=== PATIENT | male | born 1945 | race African-American/Black ===

== ENCOUNTER 2023-06-17 09:02 | Outpatient (AMB) | payer MEDICARE, MEDICAID, SELFPAY ==
--- NOTE | 2023-06-17 10:17 | MHC.OFFWIV ---
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 after 15 years To be close to his family Patient have a history of asthma and was on Symbicort until his insurance declined to cover it I have sent different maintenance inhaler patient is to check with his pharmacy He is requesting albuterol refill which I have sent as well Currently patient is stable however he is using albuterol every night He has appointment with a new PCP coming up next month. Review system: Patient deny any shortness a breath any chest pain, no coughing no headache no dizziness no nausea vomiting diarrhea no abdominal pain PFSH Social History Patient Tobacco Use Status: Never used Tobacco Review of Systems Const All systems reviewed & are unremarkable except as noted in HPI and below Physical Exam Vital Signs: Last Vital Signs Temp 97.4 F 06/17/23 10:20 Pulse 77 06/17/23 10:20 BP 140/80 H 06/17/23 10:20 Pulse Ox 98 06/17/23 10:20 Oxygen Delivery Method Room Air 06/17/23 10:20 BMI result Body Mass Index 24.8 Const General: no acute distress Orientation/consciousness: patient oriented x3 Eyes General: appearance normal, both eyes and all related structures Resp Effort & Inspection: normal respiratory effort and able to speak in complete sentences Auscultation: clear to auscultation bilaterally Cardio Other: S1 S2 Neuro General: patient oriented x3 Psych Mental Status: mental status grossly normal Assessment & Plan Assessment & Plan (1) Asthma, moderate persistent: Code(s): J45.40 - Moderate persistent asthma, uncomplicated Qualifiers: Asthma complication type: uncomplicated Qualified Code(s): J45.40 - Moderate persistent asthma, uncomplicated Plan Patient is 78-year-old gentleman with a history of asthma Just moved in this area from [facility] after 15 years To be close to his family Patient have a history of asthma and was on Symbicort until his insurance declined to cover it I have sent different maintenance inhaler patient is to check with his pharmacy He is requesting albuterol refill which I have sent as well Currently patient is stable however he is using albuterol every night He has appointment with a new PCP coming up next month. Review system: Patient deny any shortness a breath any chest pain, no coughing no headache no dizziness no nausea vomiting diarrhea no abdominal pain Medications: New fluticasone propion-salmeterol 232-14 mcg/actuation (AirDuo RespiClick) 1 inh inhalation BID 1 ea 0RF albuterol sulfate 90 mcg/actuation (Ventolin HFA) 1 inh inhalation QID 30 days PRN 6.7 grams 0RF shortness of breath or wheezing Coding Level of Care Code New Pt Level 3 (76228) Diagnoses Moderate persistent asthma without complication J45.40 Asthma complication type: uncomplicated
[2023-06-17 10:20] VITALS: BP 140/80; PULSE 77; TEMP 36.3; O2SAT 98; BMI 24.8
== END 2023-06-17 10:40 | disposition home or self-care (01) ==
PROVIDERS: Visit Provider Internal Medicine
DX: J45.40 Moderate persistent asthma, uncomplicated (principal)
CPT/HCPCS: 99203

== ENCOUNTER 2023-08-22 11:22 | Outpatient (AMB) | payer MEDICARE, SELFPAY ==
--- NOTE | 2023-08-22 11:33 | A.OFFVIS_ITS ---
Intake Visit Reasons: Elevated PSA Intake Note: New patient is present for Elevatd PSA/BPH Without LUTS Urology Med: Alfuzosin Anitbiotic Allergies: None Blood Thinner: None Allergies No Known Allergies Allergy (Verified 08/22/23 11:38) HPI Comments Details: Cliff is a pleasant male. He is a patient with scope. He seen for the following urologic conditions - lower urinary tract symptoms - elevated PSA Elevated PSA Recently moved back to [facility] from [facility] Had been followed for elevated PSA PSA 06/14 6.6 Prior biopsy performed 2020 Recent MRI - prostate size 90 g, 8 mm prostatic apex PI-RADS 4 lesion Has clinically insignificant prostate lesion. Under 10 mm. Large prostate with PSA density below 10% Recommend trial of finasteride PFSH Medical History Colonic polyp BPH without obstruction/lower urinary tract symptoms HTN (hypertension) History of ETOH abuse Hx of major depression LV hypertrophy, hypertensive Surgical History History of prostate biopsy Social History Patient Tobacco Use Status: Never used Tobacco Review of Systems Const Denies chills and Denies fever(s) Card Reports no additional complaints and Denies syncope Resp Denies cough GI Denies abdominal pain and Denies heartburn Reports as per HPI and Denies change in libido Neuro Denies syncope Psych Denies change in libido Endo Denies change in libido Physical Exam Const General: cooperative, healthy appearing, comfortable and no acute distress Orientation/consciousness: patient oriented x3 HEENT Face and sinus: Yes normal facial exam Mouth: moist mucous membranes Neck Neck: Yes normal visual inspection, Yes full ROM and Yes trachea midline Chest Chest palpation & inspection: normal inspection of the chest Resp Effort & Inspection: normal respiratory effort, able to speak in complete sentences and no respiratory distress GI Inspection: Yes normal to inspection Rectal Exam - Male: Yes normal sphincter tone and Yes prostate normal Male General Exam: Yes normal external exam Penis: normal penis and circumcised Meatus: meatus normal Scrotum: scrotum normal Testes: Testes normal Back/Spine/Pelvis Cervical Spine: normal cervical lordosis Thoracic/Lumbar Spine: thoracic and lumbar spine normal to inspection Skin General skin exam: no rashes or lesions noted Neuro General: patient oriented x3, gait normal, tone normal and moves all extremities Extrem General: Yes normal to inspection and Yes capillary refill normal Assessment & Plan Assessment & Plan (1) Elevated PSA: Code(s): R97.20 - Elevated prostate specific antigen [PSA] Category: Medical Plan Six-month follow-up PSA Orders: Orders PSA,Total (Free>4and<10) 6 Months R97.20 - Elevated prostate specific antigen [PSA] Medications: New finasteride 5 mg PO DAILY 90 days 90 tabs 1RF N13.8 - Other obstructive and reflux uropathy, N40.1 - Benign prostatic hyperplasia with lower urinary tract symptoms, R33.9 - Retention of urine, unspecified, R97.20 - Elevated prostate specific antigen [PSA] Patient Instructions: Imaging studies, laboratory and physical exam results were discussed and reviewed in detail. No major barriers to patient understanding were identified. An opportunity to ask questions regarding the treatment plan was provided. All questions were answered. The patient expressed understanding and agreement with the above treatment plan. The patient is aware they should contact our office by phone for worsening of their current condition or the appearance of new urologic symptoms. Compliance is encouraged with any medications and followup testing that is ordered. It is a privilege to participate in the urologic care of your patient. If you have any questions or concerns regarding treatment for the above conditions, or other urologic issues, please do not hesitate to contact me. The office telephone contact is [phone]. This note is constructed using voice recognition software. While every effort has been made to ensure accuracy particleboard factory worker errors may have been included. Yours sincerely, Dr Stephon Miller MD, [facility] - Urology Providers of Expert, Compassionate Care for the Genitourinary System Coding Level of Care Code New Pt Level 4 (27584) Diagnoses Elevated PSA R97.20
== END 2023-08-22 12:05 | disposition home or self-care (01) ==
PROVIDERS: PCP Registered Nurse; Visit Provider Urology
DX: R97.20 Elevated prostate specific antigen [PSA] (principal)
CPT/HCPCS: 99204

== ENCOUNTER → 2023-08-22 11:22 | Outpatient (BNVA) | payer MEDICARE, SELFPAY | PROVIDERS: PCP Registered Nurse; Visit Provider Urology | DX: R97.20 Elevated prostate specific antigen [PSA] (principal); N40.1 Benign prostatic hyperplasia with lower urinary tract symptoms; N13.8 Other obstructive and reflux uropathy; R33.8 Other retention of urine | CPT/HCPCS: 99202 ==

== ENCOUNTER 2024-03-04 11:31 | Outpatient (AMB) | payer MEDICARE, SELFPAY ==
--- NOTE | 2024-03-04 11:48 | A.OFFVIS_ITS ---
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 He is a patient with scope. He seen for the following urologic conditions - lower urinary tract symptoms - elevated PSA Telemedicine Evaluation 15 min Consultation [employer] Teresa Video PSA fell to 4.1 on finasteride Would continue Six-month check PSA Elevated PSA Recently moved back to [facility] from [facility] Had been followed for elevated PSA PSA 06/14 6.6, 02/11 4.1 Prior biopsy performed 2020 Recent MRI - prostate size 90 g, 8 mm prostatic apex PI-RADS 4 lesion Has clinically insignificant prostate lesion. Under 10 mm. Large prostate with PSA density below 10% Continue finasteride [facility] Medical History (Updated 03/04/24 @ 11:54 by Stephon Miller MD) Colonic polyp BPH without obstruction/lower urinary tract symptoms HTN (hypertension) History of ETOH abuse Hx of major depression LV hypertrophy, hypertensive Surgical History History of prostate biopsy Social History Patient Tobacco Use Status: Never used Tobacco Review of Systems Const All systems reviewed & are unremarkable except as noted in HPI and below Reports no additional complaints Resp Reports no additional complaints GI Reports no additional complaints Reports as per HPI Musc Reports no additional complaints Physical Exam Telemedicine evaluation Appropriate responses Regular breathing rate and rhythm HEENT Head: Yes normal to inspection Ears: hearing grossly normal bilaterally Eyes General: appearance normal, both eyes and all related structures Neck Neck: Yes normal visual inspection Chest Chest palpation & inspection: normal inspection of the chest Resp Effort & Inspection: normal respiratory effort and able to speak in complete sentences Telehealth Telehealth Telehealth Platform: [employer] Location of provider rendering services: practice address Location of patient: address on file Patient Identification confirmed using: Name, : Yes Telehealth method: video Patient verbally consented to treatment: Yes Patient verbally consented to billing insurance company: Yes Patient informed of any privacy concerns related to visit: Yes Minutes spent on Phone/Video with Pt.: 15 Assessment & Plan Assessment & Plan (1) Elevated PSA: Code(s): R97.20 - Elevated prostate specific antigen [PSA] Category: Medical (2) BPH without obstruction/lower urinary tract symptoms: Code(s): N40.0 - Benign prostatic hyperplasia without lower urinary tract symptoms Category: Medical Plan Continue finasteride PSA checked six-month Orders: Orders Prostate Specific Antigen 6 Months R97.20 - Elevated prostate specific antigen [PSA] Prostate Specific Antigen 02/26/24 R97.20 - Elevated prostate specific antigen [PSA] Medications: Refilled finasteride 5 mg PO DAILY 90 days 90 tabs 1RF N13.8 - Other obstructive and reflux uropathy, N40.1 - Benign prostatic hyperplasia with lower urinary tract symptoms, R33.9 - Retention of urine, unspecified, R97.20 - Elevated prostate specific antigen [PSA] Patient Instructions: Imaging studies, laboratory and physical exam results were discussed and reviewed in detail. No major barriers to patient understanding were identified. An opportunity to ask questions regarding the treatment plan was provided. All questions were answered. The patient expressed understanding and agreement with the above treatment plan. The patient is aware they should contact our office by phone for worsening of their current condition or the appearance of new urologic symptoms. Compliance is encouraged with any medications and followup testing that is ordered. It is a privilege to participate in the urologic care of your patient. If you have any questions or concerns regarding treatment for the above conditions, or other urologic issues, please do not hesitate to contact me. The office telephone contact is [phone]. This note is constructed using voice recognition software. While every effort has been made to ensure accuracy oyster sorter errors may have been included. Yours sincerely, Dr Stephon Miller MD, [facility] - Urology Providers of Expert, Compassionate Care for the Genitourinary System Coding Level of Care Code Tele Est Pt Level 3 (08744) Diagnoses Elevated PSA R97.20 BPH without obstruction/lower urinary tract symptoms N40.0
== END 2024-03-04 12:06 | disposition home or self-care (01) ==
LOC: HO.HUSH 11:31
PROVIDERS: PCP Registered Nurse; Visit Provider Urology
DX: R97.20 Elevated prostate specific antigen [PSA] (principal); N40.0 Benign prostatic hyperplasia without lower urinary tract symptoms
CPT/HCPCS: 99213

== ENCOUNTER 2024-11-23 10:03 | Outpatient (AMB) | payer MEDICARE, MEDICAID, SELFPAY ==
--- NOTE | 2024-11-23 10:03 | MHC.OFFVIS ---
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 He is a patient of Dr Monae. He seen for the following urologic conditions - lower urinary tract symptoms - elevated PSA Six-month follow-up PSA Has been on finasteride Bounce to 8.2 Prior MRI large prostate but clinically insignificant lesion Had been off finasteride Represcribed Six-month check PSA Elevated PSA Recently moved back to [facility] from [facility] Had been followed for elevated PSA PSA 06/14 6.6, 02/11 4.1 Prior biopsy performed 2019 Recent MRI - 2022 - prostate size 90 g, 8 mm prostatic apex PI-RADS 4 lesion Has clinically insignificant prostate lesion. Under 10 mm. Large prostate with PSA density below 10% Continue finasteride [facility] Medical History (Updated 03/04/24 @ 11:54 by Stephon Miller MD) Colonic polyp BPH without obstruction/lower urinary tract symptoms HTN (hypertension) History of ETOH abuse Hx of major depression LV hypertrophy, hypertensive Surgical History History of prostate biopsy Social History Patient Tobacco Use Status: Never used Tobacco Review of Systems Const Denies chills and Denies fever(s) Card Reports no additional complaints and Denies syncope Resp Denies cough GI Denies abdominal pain and Denies heartburn Reports as per HPI and Denies change in libido Neuro Denies syncope Psych Denies change in libido Endo Denies change in libido Physical Exam Const General: cooperative, healthy appearing, comfortable and no acute distress Orientation/consciousness: patient oriented x3 HEENT Face and sinus: Yes normal facial exam Mouth: moist mucous membranes Neck Neck: Yes normal visual inspection, Yes full ROM and Yes trachea midline Chest Chest palpation & inspection: normal inspection of the chest Resp Effort & Inspection: normal respiratory effort, able to speak in complete sentences and no respiratory distress GI Inspection: Yes normal to inspection Back/Spine/Pelvis Cervical Spine: normal cervical lordosis Thoracic/Lumbar Spine: thoracic and lumbar spine normal to inspection Skin General skin exam: no rashes or lesions noted Neuro General: patient oriented x3, gait normal, tone normal and moves all extremities Extrem General: Yes normal to inspection and Yes capillary refill normal Assessment & Plan Assessment & Plan (1) BPH without obstruction/lower urinary tract symptoms: Code(s): N40.0 - Benign prostatic hyperplasia without lower urinary tract symptoms Category: Medical (2) Elevated PSA: Code(s): R97.20 - Elevated prostate specific antigen [PSA] Category: Medical Plan Six-month follow-up repeat PSA on finasteride Patient Instructions: This note is constructed using voice recognition software. While every effort has been made to ensure accuracy assembly manager errors may have been included. Imaging studies, laboratory and physical exam results were discussed and reviewed in detail. No major barriers to patient understanding were identified. An opportunity to ask questions regarding the treatment plan was provided. All questions were answered. The patient expressed understanding and agreement with the above treatment plan. The patient is aware they should contact our office by phone for worsening of their current condition or the appearance of new urologic symptoms. Compliance is encouraged with any medications and followup testing that is ordered. It is a privilege to participate in the urologic care of your patient. If you have any questions or concerns regarding treatment for the above conditions, or other urologic issues, please do not hesitate to contact me. The office telephone contact is [phone]. Sincerely, Dr Stephon Miller MD, [place] [facility] - Urology Compassionate Specialist Care for the Genitourinary System Coding Level of Care Code Est Pt Level 4 (24632) Diagnoses BPH without obstruction/lower urinary tract symptoms N40.0 Elevated PSA R97.20
--- OUTSIDE RECORDS SUMMARY | 2024-11-23 10:37 | XMS_ITS | Clinical Summary ---
Author Organization [facility] Address [address] [place] [address] Phone Care Team Providers Care Manager Privacy Name Role Phone Salbador Monae CNP Primary Care Provider [phone] Allergies Active Allergy Reactions Criticality Noted Date Comments Pollen Extracts 09/06/2020 Tree Nut 09/06/2020 Medications alfuzosin (UROXATRAL) 10 mg 24 hr tablet Take 1 tablet by mouth every morning. 4 Active losartan-hydroC HLOROthiazide (HYZAAR) 50-12.5 mg per tablet Take 1 tablet by mouth 2 (two) times a day. 90 tablet 4 Active ADVAIR HFA 230-21 mcg/actuation inhaler Inhale 2 puffs into the lungs 2 (two) times a day. 12 g 2 5 Active amLODIPine (NORVASC) 10 MG tablet Take 1 tablet (10 mg total) by mouth every morning. 5 Active fluticasone propionate (FLONASE) 50 mcg/actuation nasal sprayIndication s:Chronic seasonal allergic rhinitis due to pollen 1 spray by Nasal route daily. 16 g 2 5 Active montelukast (SINGULAIR) 10 mg tablet TAKE 1 TABLET(10 MG) BY MOUTH DAILY 90 tablet 5 Active albuterol 90 mcg/actuation inhaler INHALE 2 PUFFS INTO THE LUNGS EVERY 4 HOURS NEEDED 8.5 g 5 Active montelukast (SINGULAIR) 10 mg tablet TAKE 1 TABLET(10 MG) BY MOUTH DAILY 90 tablet 5 10/26/19 25 Discontinued albuterol 90 mcg/actuation inhaler INHALE 2 PUFFS INTO THE LUNGS EVERY 4 HOURS NEEDED 18 g 1 5 11/23/19 25 Discontinued Active Problems Problem Noted Date Diagnosed Date Tingling of left upper extremity 09/29/2024 Assessment & Plan (09/29/2024 11:17 AM EDT): Not overly bothersome. Primarily in hand, occurs intermittently. No associated symptoms. May be neck related, encourage stretching/moist heat. Follow-up if no improvement and/or worsening symptoms. Can consider PT/imaging as needed Medicare annual wellness visit, subsequent 10/23 Assessment & Plan (10/24/2023 5:21 PM EDT): HRA form reviewed, all questions answered. Due for optho/dentist, patient will work on arrange. Believes immunizations utd and will work on getting copy from [facility] in [facility]. Fasting labs ordered today. No concerns with skin, does not see dermatology. Does not have HCP- form provided for patient today. Plan for HTN follow-up in six months, aware to follow-up sooner if needed Chronic seasonal allergic rhinitis due to pollen 07/10/2023 Assessment & Plan (09/29/2024 11:16 AM EDT): RX refill sent for Flonase Assessment & Plan (07/17/2023 3:13 PM EDT): Uses Flonase with management BPH without obstruction/lower urinary tract symp toms 07/10/2023 Overview (07/10/2023): Saw urology Assessment & Plan (09/29/2024 11:16 AM EDT): Following/managed through urology- Dr. Miller Assessment & Plan (10/24/2023 5:17 PM EDT): Had visit with urology and Finasteride was added to regimen. Not 100% sure if improvement but has been approximately one 1-2 months. Has follow-up visit with urology 02/2024 Assessment & Plan (07/17/2023 3:15 PM EDT): Following with urology annually in [facility] and interested in establishing locally. Referral entered to Dr. Miller in [place]. Patient will reach out to their office. PSA labs ordered to be done 09/2023. Continue medications as prescribed Elevated PSA 07/10/2023 Overview (07/10/2023): Saw urology Assessment & Plan (07/17/2023 3:15 PM EDT): *see plan per BPH History of colonic polyps 07/10/2023 Overview (07/10/2023): Referred to GI 10/21/22 ? Did he have next f/u colonoscopy Assessment & Plan (10/24/2023 5:21 PM EDT): Reports no further screening with colonoscopy Assessment & Plan (07/17/2023 3:15 PM EDT): Reports having a colonoscopy recently and then advised no further screening Mild recurrent major depression 07/10/2023 Assessment & Plan (10/24/2023 5:18 PM EDT): Mood feels stable at this time, doing well without medication and does not feel needed at this time Assessment & Plan (07/17/2023 3:16 PM EDT): Had been on Fluoxetine, weaned self off as didn't feel needed. Mood has been stable and overall feels well without medication Primary hypertension 07/09/2023 Assessment & Plan (09/29/2024 11:16 AM EDT): BP at goal, continue medications as prescribed. Labs previously ordered but not yet completed, ordered again today and will follow-up with results. Encourage DASH diet/regular exercise Assessment & Plan (10/24/2023 5:12 PM EDT): BP at goal, continue medications as prescribed. Referral entered to cardiology 08/2023 but patient never heard regarding appointment. Phone # provided for [facility] and encourage for patient to call their office to arrange. Labs ordered today, last done 09/2022. Encourage DASH diet/regular exercise Assessment & Plan (07/17/2023 3:13 PM EDT): BP at goal today, medication list/reviewed. Labs done 09/2022. Was following with cardiology in [facility] and prefers to follow here. Referral entered and phone # provided for patient. No acute concerns at this time Moderate persistent asthma without complication 07/09/2023 Assessment & Plan (10/24/2023 5:24 PM EDT): Has been well managed, inhaler prescription verified and taking Advair HFA 230- 21 two puffs BID. Dosage/prescription confirmed with pharmacist. Believes utd with PNA vaccine, will obtain copy of records from [facility]. Assessment & Plan (07/17/2023 3:14 PM EDT): Has been without Symbicort for past 2-3 months due to insurance no longer covering. Can tell audible wheezing, no signs of respiratory distress. Advair inhaler rx was sent by but patient has yet to start it, encourage to start and call with update in 1-2 weeks. If not improvement may need to increase/change medication. Also takes Singulair and has albuterol inhaler to use as needed. Aware to follow-up sooner for any new/worsening symptoms Encounters Date Type Department Care Team Description 11/20/2024 Refill [facility] [address] [place] [address] Salbador Monae CNP Medication Refill 11/19/2024 8:48 AM EDT - 11/19/2024 11:59 PM EDT Hospital Encounter [facility] [address] [place] [address] Stephon Miller MD Discharge Disposition: Home or Self Care 11/17/2024 Telephone [facility] [address] [address] Salbador Monae CNP 11/08/2024 9:38 AM EDT - 11/08/2024 11:59 PM EDT Hospital Encounter [facility] [address] [place] [address] Salbador Monae CNP Discharge Disposition: Home or Self Care 11/08/2024 Transcribe Orders [facility] [address] [place] [address] Salbador Monae CNP Iron deficiency anemia, unspecified iron deficiency anemia type (Primary Dx) 10/29/[address] [address] Salbador Monae CNP Results 10/25/2024 8:31 AM EDT - 10/25/2024 11:59 PM EDT Hospital Encounter [facility] [address] [place] [address] Salbador Monae CNP Discharge Disposition: Home or Self Care 10/25/[address] [address] Salbador Monae CNP Medication Refill (montelukast sodium ) 09/29/2024 11:00 AM EDT Office Visit [address] [address] Salbador Monae CNP Primary hypertension (Primary Dx); BPH without obstruction/lower urinary tract symptoms; Chronic seasonal allergic rhinitis due to pollen; Tingling of left upper extremity 09/29/[address] [address] Salbador Monae CNP 09/16/[address] [address] Salbador Monae CNP Appointment (FUV r/s) from Last 3 Months Immunizations Immunization Administration Dates Next Due COVID-19 (Pre-02/10) Moderna Vaccine, mRNA, PF 1 05/09/2020 Td (adult),2 Lf Tetanus Toxoid, PF, Adsorbed Social History Tobacco Use Types Packs/Day Years Used Date Smoking Tobacco: Former Cigarettes 0.3 25 1 965 - 1989 Smokeless Tobacco: Never Alcohol Use Standard Drinks/Week Comments Not Currently 0 (1 standard drink = 0.6 oz pur e alcohol) Education Answer Date Recorded Are you interested in more education? Not on chai e 08/15/2022 Are you concerned about learning? Not on file 08/15/2022 No 08/15/2022 No 08/15/2022 Digital Access Answer Date Recorded No 09/16/2022 No 09/16/2022 Reliable internet access at home? Not on file 09/16/2022 Device with a working camera? Not on file Intimate Partner Violence Answer Date R ecorded Denied Basic Needs Not on file 10/24/2023 In the past 12 months have y ou been in a relationship with a person who hurts, threatens, or tries to control you? No 10/24/2023 Worried food would run out Not on file 10/23 In the past 12 months have y ou been in a relationship with a person who hurts, threatens, or tries to control you? No 10/24/2023 Sex and Gender Information Value Date Recorded Sex Assigned at Not on file Legal Sex Male 7:47 PM EST Gender Identity Not on file Sexual Orientation Not on file Last Filed Vital Signs Vital Sign Reading Time Taken Comments Blood Pressure 122/68 09/29/2024 10:42 AM EDT Pulse 76 09/29/2024 10:42 AM EDT Temperature 36.6 C (97.8 F) 09/29/2024 10:42 AM EDT Respiratory Rate 20 10/24/2023 1:00 PM EDT Oxygen Saturation 97% 09/29/2024 10:42 AM EDT Inhaled Oxygen Concentration - - Weight 77.6 kg (171 lb) 09/29/2024 10:42 AM EDT Height 167.6 cm (5' 6 ) 10/24/2023 1:00 PM EDT Body Mass Index 27.6 10/24/2023 1:00 PM EDT Plan of Treatment Upcoming Encounters Date Type Department Care Team (Late st Contact Info) Description 01/17/2025 10:00 AM EDT Telemedicine [facility] [address] [place] [address] Vanda Monae PA-C [address] [place] [address] [email or web address] 04/04/2025 11:00 AM EST Office Visit [facility] [address] [place] [address] Salbador Monae, DG [address] [place] [address] [email or web address] Health Maintenance Due Date Last Done Comments SMOKING Hx and SMOKELESS TOB ACCO SCREENING 1958 HEPATITIS C SCREENING 01/17/1964 PNEUMOCOCCAL VACCINES (50+ y ears) (1 of 2 - PCV) 1965 ZOSTER VACCINES (1 of 2) 01/17/1996 Adult Td,Tdap Booster 02/18/2016 02/17/2006 RSV VACCINE (1 - 1-dose 75+ series) 2021 COVID-19 VACCINE (2 - 2023-2 5 season) 2023 03/09/2021 DEPRESSION SCREENING 10/23/2024 10/24/2023 BLOOD PRESSURE 03/31/2025 09/29/2024 CREATININE LEVEL 10/25/2025 10/25/2024 POTASSIUM LEVEL 10/25/2025 10/25/2024 LIPID PANEL 10/25/2029 10/25/2024 HEPATITIS A VACCINES Aged Out No long er eligible based on patient's age to complete this topic HIB VACCINES Aged Out No longer eligi ble based on patient's age to complete this topic MENINGOCOCCAL VACCINES (ACWY) Aged Out No longer eligible based on patient's age to complete this topic MENINGOCOCCAL VACCINES (B) Aged Out N o longer eligible based on patient's age to complete this topic Medical Devices Not on file Procedures Procedure Name Priority Date/Time Associated Diagnosis Comments PSA (SCREENING) Routine 11/19/2024 9:19 AM EDT Elevated prostate specific antigen (PSA) FOLATE Routine 11/08/2024 12:13 PM EDT Iron deficiency anemia, unspecified iron deficiency anemia type IRON AND IRON BINDING CAPACITY Routine 11/08/2024 9:59 AM EDT Iron deficiency anemia, unspecified iron deficiency anemia type FERRITIN Routine 11/08/2024 9:59 AM EDT Iron deficiency anemia, unspecified iron deficiency anemia type CBC AND DIFFERENTIAL Routine 11/08/2024 9:59 AM EDT Iron deficiency anemia, unspecified iron deficiency anemia type CBC Routine 10/25/2024 9:22 AM EDT Primary hypertension COMPREHENSIVE METABOLIC PANEL Routine 10/25/2024 9:22 AM EDT Primary hypertension LIPID PANEL Routine 10/25/2024 9:22 AM EDT Primary hypertension from Last 3 Months Results * (ABNORMAL) PSA (screening) (11/19/2024 9:19 AM EDT) PSA 8.24(H) 0 - 4.00 ng/mL [facility] Comment: Test Methodology Masood [id number] Patient results determined by assays using different manufacturers or methods may not be comparable. Blood 11/19/2024 9:19 AM EDT 11/19/2024 9:23 AM EDT us Stephon Miller MD LAB BLOOD ORDERABLES Final Result [facility] [address] [place] [address] * Folate (11/08/2024 12:13 PM EDT) FOLIC ACID 8.1 4.2 - 19.9 ng/mL [facility] Blood 11/08/2024 12:1 3 PM EDT 11/08/2024 12:17 PM EDT Salbador Monae [facility] LAB BLOOD ORDERABLES Final Result Performing Organization Address City/[facility]/ZIP Co de Phone Number [address] [address] * Iron and iron binding capacity (11/08/2024 9:59 AM EDT) IRON 86 45 - 160 ug/dL [facility] IRON BINDING CAPACITY 239 228 - 428 ug/dL [facility] TRANSFERRIN SATURAT. 36 20 - 55 % [facility] Blood 11/08/2024 9:59 AM EDT 11/08/2024 11:20 AM EDT Salbador Monae [facility] LAB BLOOD ORDERABLES Final Result Performing Organization Address [facility] Co de Phone Number [address] [address] * (ABNORMAL) CBC and differential (11/08/2024 9:59 AM EDT) WBC 7.80 4.00 - 11.00 K/uL [facility] RBC 4.70 4.50 - 5.90 M/uL [facility] HGB 11.7(L) 13.5 - 17.5 g/dL [facility] HCT 36.2(L) 41.0 - 53.0 % [facility] PLT 274 150 - 450 K/uL [facility] MCV 77.0(L) 80.0 - 100.0 fL [facility] MCH 24.9(L) 27.0 - 31.0 pg [facility] MCHC 32.3 32.0 - 36.0 g/dL [facility] RDW 12.9 11.5 - 14.5 % [facility] MPV 11.6 8.4 - 12.0 fL [facility] NRBC 0.00 0.00 /100 WBCs [facility] ABSOLUTE NRBC 0.00 0.00 K/uL [facility] DIFF METHOD Auto [facility] NEUTS 48.4 48.0 - 76.0 % [facility] LYMPHS 25.0 18.0 - 41.0 % [facility] MONOS 5.3 4.0 - 11.0 % [facility] EOS 19.9(H) 0.0 - 5.0 % [facility] BASOS 1.0 0.0 - 1.5 % [facility] Granulocytes, immature (%) 0.4 0.0 - 0.9 % [facility] ABSOLUTE NEUTS 3.78 1.92 - 7.60 K/uL [facility] ABSOLUTE LYMPHS 1.95 0.72 - 4.10 K/uL [facility] ABSOLUTE MONOS 0.41 0.16 - 1.10 K/uL [facility] ABSOLUTE EOS 1.55(H) 0.00 - 0.50 K/uL [facility] ABSOLUTE BASOS 0.08 0.00 - 0.15 K/uL [facility] Granulocytes, immature 0.03 0.00 - 0.09 K/uL [facility] Blood 11/08/2024 9:59 AM EDT 11/08/2024 11:20 AM EDT us Salbador Monae CNP LAB BLOOD ORDERABLES Final Result [address] [address] * Ferritin (11/08/2024 9:59 AM EDT) FERRITIN 294 30 - 400 ug/L [facility] Blood 11/08/2024 9:59 AM EDT 11/08/2024 11:20 AM EDT Salbador Monae [employer] LAB BLOOD ORDERABLES Final Result [address] [address] * (ABNORMAL) Comprehensive metabolic panel (10/25/2024 9:22 AM EDT) SODIUM 140 133 - 146 mmol/L [facility] POTASSIUM 4.0 3.3 - 5.1 mmol/L [facility] CHLORIDE 105 96 - 108 mmol/L [facility] CO2 26 21 - 35 mmol/L [facility] BUN 14 6 - 19 mg/dL [facility] CREATININE 1.40 0.5 - 1.5 mg/dL [facility] GLUCOSE 94 70 - 99 mg/dL [facility] ALBUMIN 4.0 3.9 - 4.8 g/dL [facility] TOTAL PROTEIN 7.0 6.5 - 8.0 g/dL [facility] CALCIUM 9.7 8.4 - 10.3 mg/dL [facility] ALKALINE PHOSPHATASE 80 39 - 117 U/L [facility] TOTAL BILIRUBIN 0.5 0.0 - 1.2 mg/dL [facility] AST 20 0 - 37 U/L [facility] ALT 19 0 - 40 U/L [facility] GLOBULIN 3.0 1 - 4.8 g/dL [facility] EGFR 51(L) >59 mL/min/1.7 3m2 [facility] Comment:Estimated glomerular filtration rate calculated using the CKD-EPI refit equation. ANION GAP 13 10 - 20 mmol/L [facility] Blood 10/25/2024 9:2 2 AM EDT 10/25/2024 9:25 AM EDT us Salbador Monae [facility] LAB BLOOD ORDERABLES Final Result Performing Organization Address City/State/[facility] Co de Phone Number [address] [address] * (ABNORMAL) CBC (10/25/2024 9:22 AM EDT) WBC 7.46 4.00 - 11.00 K/uL [facility] RBC 4.53 4.50 - 5.90 M/uL [facility] HGB 11.5(L) 13.5 - 17.5 g/dL [facility] HCT 34.8(L) 41.0 - 53.0 % [facility] PLT 238 150 - 450 K/uL [facility] MCV 76.8(L) 80.0 - 100.0 fL [facility] MCH 25.4(L) 27.0 - 31.0 pg [facility] MCHC 33.0 32.0 - 36.0 g/dL [facility] RDW 12.8 11.5 - 14.5 % [facility] MPV 11.9 8.4 - 12.0 fL [facility] NRBC 0.00 0.00 /100 WBCs [facility] ABSOLUTE NRBC 0.00 0.00 K/uL [facility] Blood 10/25/2024 9:22 AM EDT 10/25/2024 9:25 AM EDT Salbador Monae CNP LAB BLOOD ORDERABLES Final Result Performing Organization Address City/[facility]/ZIP Co de Phone Number [address] [address] * (ABNORMAL) Lipid panel (10/25/2024 9:22 AM EDT) HDL 68 mg/dL [facility] Comment: Interpretation <40 mg/dL: Low HDL cholesterol (major risk factor for CHD) Greater than or equal to 60 mg/dL: High HDL cholesterol ( negative risk factor for CHD) HDL - cholesterol is affected by a number of factors, e.g. smoking, excerise, hormones, sex and age. CHOLESTEROL 158 0 - 240 mg/dL [facility] TRIGLYCERIDES 112 30 - 160 mg/dL [facility] LDL 68 50 - 129 mg/dL [facility] Comment: LDL levels in terms of risk for coronary heart disease: <100 mg/dL: Optimal 100-129 mg/dL: Near or above optimal 130-159 mg/dL: Borderline high 160-189 mg/dL: High >190 mg/dL: Very High CARDIAC RISK RATIO 2.3(L) 3.4 - 5.0 C [facility] Blood 10/25/2024 9:22 AM EDT 10/25/2024 9:25 AM EDT Salbador Monae CNP LAB BLOOD ORDERABLES Final Result [address] [place] [address] from Last [address] [place] [address] [facility] MEDICARE REPLACEMENT [facility] MEDICARE REPLACEMENT [facility]IC[facility]AC[facility] Member Subscriber Plan / Payer (Ef fective 2024-Present) Name:Cliff Metzger Relation to Subscriber:Self Name:Cliff Metzger Payer ID:[id number] (NAIC) Group ID:Not on file Type:Medicare Address: [place] [id number] [place] [address] [facility] MEDICARE REPLACEMENT Member Subscriber Plan / Payer (Ef fective 2024-) Name:Cliff Metzger Relation to Subscriber:Self Name:Cliff Metzger Payer ID:[id number] (NAIC) Group ID:Not on file Type:Medicare Address: [place] [id number] [facility] MEDIC[facility] REPLACEMENT [address] [place] [address] [address] [place] [address] [address] [place] [address] [place] [address] Care Teams Manager Privacy Relationship Specialty Start Date End Date Salbador Monae CNP [address] [place] [address] [place] [address] [email or web address] PCP - General Family Medicine 05/06/23 Additional Source Comments The information contained in this document represents components of the legal health record. It is not the complete legal health record.[facility]
--- OUTSIDE RECORDS SUMMARY | 2024-11-23 10:37 | XMS_ITS | Clinical Summary ---
Author Organization [facility] Address [address] [place], [place] [address] Care Team Providers Care Boilermaker Apprentice Name Role Phone JordanCarol caballero SONIA Primary Care Provider [phone] Social History Tobacco Use Types Packs/Day Years Used Date Smoking Tobacco: Never Assessed Sex and Gender Information Value Date Recorded Sex Assigned at Not on file Legal Sex Male 9:48 PM EDT Gender Identity Not on file Sexual Orientation Not on file Last Filed Vital Signs Vital Sign Reading Time Taken Comments Blood Pressure - - Pulse - - Temperature - - Respiratory Rate - - Oxygen Saturation - - Inhaled Oxygen Concentration - - Weight 72.1 kg (159 lb) 10/09/2018 10:07 AM EDT Height 168.3 cm (5' 6.25 ) 10/09/2018 10:07 AM E DT Body Mass Index 25.47 10/09/2018 10:07 AM EDT Plan of Treatment Health Maintenance Due Date Last Done Comments Hepatitis C Screening 1945 Pneumococcal Vaccine: 50+ (1 of 2 - PCV) 1965 Zoster Vaccines (1 of 2) 01/17/1996 Respiratory Syncytial Virus (RSV): 60+ years (1 - 1-dose 75+ series) 2021 DTaP,Tdap,and Td Vaccines (2 - Td or Tdap) 01/18/2023 01/18/2013 Influenza Vaccine (#1) 2024 HPV Vaccines Aged Out No longer eligi ble based on patient's age to complete this topic Meningococcal Vaccine Aged Out No lucinda emmett eligible based on patient's age to complete this topic Insurance KIRK MURPHY [id number] MEDICARE PART A AND B [facility] STANDARD Care Teams Boilermaker Apprentice Relationship Specialty Start Date End Date Carol Ortega NP [address] [place] [id number] PCP - General Family Medicine 10/11/21
--- OUTSIDE RECORDS SUMMARY | 2024-11-23 10:37 | XMS_ITS | Clinical Summary ---
Author Organization [facility] Address [address] [place] [address] Care Team Providers Care Licensed Final Expense Agents Name Role Phone Unavailable Primary Care Provider Unavailabl e Source Comments PLEASE NOTE, if this patient is a minor, it may be UNLAWFUL to discuss sensitive information that is contained in these records (such as FAMILY PLANNING, MENTAL HEALTH or SUBSTANCE ABUSE) with the minor patient's parent or other person without the patient's specific authorization.[facility] Allergies Active Allergy Reactions Criticality Noted Date Comments Nuts 09/06/2020 Pollen Extracts 09/06/2020 Medications fluticasone propionate (FLONASE) 50 mcg/actuation nasal spray Active losartan potassium (LOSARTAN ORAL) Acti ve montelukast (SINGULAIR) 10 mg tablet Take 10 mg by mouth nightly at bedtime Active amoxicillin (AMOXIL) 500 mg capsuleIndicati ons:Periapical abscess Take 1 Capsule by mouth 3 (three) times daily 21 Capsule 10/09/2022 Active ibuprofen 800 mg tabletIndicatio ns:Periapical abscess Take 1 Tablet by mouth 3 (three) times daily as needed for pain 21 Tablet 10/09/2022 Active Active Problems No known active problems Immunizations Immunization Administration Dates Next Due Moderna COVID-19 Vaccine, re d cap blue label, 12+ Primary Series 03/09/2021 Social History Tobacco Use Types Packs/Day Years Used Date Smoking Tobacco: Never Smokeless Tobacco: Never Social Connections Answer Date Recorded Connectedness 0 01/01/2024 Financial Resource Strain Answer Date R ecorded Financial Resource Strain 0 2020 Stress Answer Date Recorded Stress 0 09/06/2020 Physical Activity Answer Date Recorded Physical Activity 0 09/06/2020 Food Insecurity Answer Date Recorded Food 0 01/15/2024 Transportation Needs Answer Date Record ed Transportation 0 09/06/2020 Housing Stability Answer Date Recorded Housing 0 09/06/2020 Safety and Environment Answer Date Goran rded Safety 0 09/06/2020 Utilities Answer Date Recorded Utilities 0 09/06/2020 Employment Answer Date Recorded Stress 0 01/01/2024 Sex and Gender Information Value Date Recorded Sex Assigned at Male 09/06/2020 11:32 AM PDT Legal Sex Male 7:30 AM PDT Gender Identity Male 09/06/2020 11:32 AM PDT Sexual Orientation Straight 09/06/2020 11 :32 AM PDT Last Filed Vital Signs Vital Sign Reading Time Taken Comments Blood Pressure 154/75 10/09/2022 9:55 AM EDT Pulse 90 10/09/2022 9:55 AM EDT Temperature 37.1 C (98.7 F) 04/25/2021 12:35 PM EST Respiratory Rate - - Oxygen Saturation - - Inhaled Oxygen Concentration - - Weight - - Height - - Body Mass Index - - Plan of Treatment Health Maintenance Due Date Last Done Comments Hepatitis C Screening 1945 Tobacco Screening 1945 Imm-DTaP/Tdap/Td (1 - Tdap) 1965 Imm-Pneumococcal 50+ (1 of 1 - PCV) 01/17/1996 Imm-Zoster, Recombinant (1 of 2) 01/17/1996 Falls Prevention 2011 Imm-RSV (adult) (1 - 1-dose 75+ series) 2021 Dental Prophy 09/28/2021 03/28/2021, 09/08/2020 Dental Examination 10/25/2021 04/25/2021, 09/06/2020 Dental BW 04/27/2022 04/25/2021, 09/06/2020 Hypertension Screening (#1) 10/09/2023 [id number] (2 - 2023- season) 2023 021 Alcohol and Drug Screen 04/21/2024 Depression Annual Screen 04/21/2024 Imm-Influenza (#1) 2024 Dental FMX/Pano 09/08/2025 09/06/2020 Procedures Procedure Name Priority Date/Time Associated Diagnosis Comments BITEWINGS - FOUR RADIOGRAPHIC IMAGES Routine 04/25/2021 12:40 PM EST Encounter for dental examination PERIODIC ORAL EVALUATION ESTABLISHED PATIENT Routine 04/25/2021 12:40 PM EST Encounter for dental examination PROPHYLAXIS - ADULT Routine 03/28/2021 1 1:00 AM EST Generalized chronic severe periodontitis INTRAORAL - COMP SERIES OF RADIOGRAPHIC IMAGES Routine 09/06/2020 2:20 PM EDT Encounter for dental examination from Last 3 Months or Most Recently Relevant to Health Maintenance Insurance [facility]
== END 2024-11-23 10:31 | disposition home or self-care (01) ==
LOC: HO.HUSH 10:03
PROVIDERS: PCP Registered Nurse; Visit Provider Urology
DX: R97.20 Elevated prostate specific antigen [PSA] (principal); N40.0 Benign prostatic hyperplasia without lower urinary tract symptoms
CPT/HCPCS: 99214

== ENCOUNTER → 2024-11-23 10:03 | Outpatient (BNVA) | payer MEDICARE, OTHER, SELFPAY | PROVIDERS: PCP Registered Nurse; Visit Provider Urology | DX: N40.0 Benign prostatic hyperplasia without lower urinary tract symptoms (principal) | CPT/HCPCS: 81003; 99212 ==